=== PATIENT | male | born 1965 | race Caucasian/White ===

== ENCOUNTER 2016-05-13 03:29 | Emergency (ER) | payer OTHER ==
--- NOTE | ~2016-05-13 | CR210 ---
[facility] A Service of [facility] [place] RADIOLOGY TEXT RESULTS PATIENT: KOTA SOLIS LOCATION: SED : 65 UNIT #: [id number] AGE: [address]: Bridger Martinez MD SEX: M ORDER DR: [id number] [place] [address] [id number] E MR#: [id number] Acc #: [id number] NAME: KOTA SOLIS : 1965 SEX: M STUDY DATE/TIME: 05/13/2016 3:47 UNIT: SED ROOM: STUDY DESCRIPTION: CR Ribs Uni 2 View W PA Ch Lt Attending Physician: Bridger Martinez M.D. Ordering Physician: Bridger Martinez M.D. Primary Care Physician: No Primary Care Physician MEDICAL IMAGING REPORT This report is preliminary unless electronic signature is present. EXAM PA chest with AP and oblique views of the left ribs. COMPARISON 2 views of the chest dated May 26, 2015. INDICATION 50-year-old male with acute left-sided rib pain after sneezing yesterday. Pain is worse with deep inspiration. FINDINGS There are arterial calcifications in the bilateral neck. There are degenerative changes at multiple levels of the cervical spine. Prior cholecystectomy. Calcified granulomas in the spleen. No acute fractures or suspicious osseous lesions. On the PA view of the chest, there is poor inspiratory effort with band-like opacities in both lungs, primarily in the mid lungs and lung bases which do not appear to persist on other views of the ribs, favoring multifocal subsegmental atelectasis. IMPRESSION No evidence of a rib fracture. On the PA view of the chest, there is poor inspiratory effort and there are multifocal band-like opacities in both lung bases and within the left midlung, favoring subsegmental atelectasis. Correlation to exclude signs of pneumonia recommended. Dictated by... Graham Mckeon M.D. THIS IS AN ELECTRONICALLY VERIFIED REPORT Graham Mckeon M.D. at 05/16/2016 9:31 PM [facility] A Service of [facility] RADIOLOGY TEXT RESULTS PATIENT: KOTA SOLIS LOCATION: SED : [birth year] UNIT #: [id number] AGE: [address]: Bridger Martinez MD SEX: M ORDER DR: ALINE/janine TD: 05/13/2016 09:55 JOB #: [id number] MEDICAL IMAGING REPORT
[~2016-05-13 03:29] MED LIST: BACTRIM DS TABL1 TA1 PO; BENTYL20 MG; FAMOTIDINE PO; FLAGYL PO; LOC; LORTAB 7.5-5001 TAB PO; MEDROL DOSE PAK PO; NO HOME MEDS; NO MEDICATIONS; PERCOCET10 PO; PHENERGAN25 M1 DOB; PROTONIX PO; REGLAN10 MG PO; TESSALON PERLE100 M1 PO; TRAMADOL HCL50 M1 PO; ZITHROMAX PO
== END 2016-05-13 05:22 | disposition home or self-care (01) ==
LOC: SED 03:29
DX: S29.9XXA Unspecified injury of thorax, initial encounter (principal); J40 Bronchitis, not specified as acute or chronic; I50.9 Heart failure, unspecified; F17.200 Nicotine dependence, unspecified, uncomplicated; X58.XXXA Exposure to other specified factors, initial encounter; Y92.009 Unspecified place in unspecified non-institutional (private) residence as the place of occurrence of the external cause
CPT/HCPCS: 71100; 99283

== ENCOUNTER 2016-11-23 08:03 | Inpatient (IN) | payer OTHER ==
[~2016-11-23] VITALS: Ht 175.3 cm; Wt 84.2 kg
--- NOTE | ~2016-11-23 | CT2 ---
[facility] A Service of [facility] RADIOLOGY TEXT RESULTS PATIENT: KOTA SOLIS LOCATION: [facility] 575-01 : [birth year] UNIT #: [id number] AGE: [address]: Delroy De La Garza MD SEX: M ORDER DR: [id number] [facility] [address] [place], [place] [address] [id number] MR#: [id number] Acc #: [id number] NAME: KOTA SOLIS : 1965 SEX: M STUDY DATE/TIME: 11/23/2016 10:34 UNIT: [facility] ROOM: 5 STUDY DESCRIPTION: CT Abd and Pelv W Cont Attending Physician: Sarbjit Villalba M.D. Ordering Physician: Bakari Hernandez D.O. Primary Care Physician: No Primary Care Physician MEDICAL IMAGING REPORT This report is preliminary unless electronic signature is present EXAM CT of the abdomen and pelvis with contrast. INDICATIONS Abdominal pain for 2 days, as well as diaphoresis, and back pain. Patient has a history of pancreatitis. TECHNIQUE Axial CT images were obtained from the dome of the diaphragm through the symphysis pubis following the administration of intravenous contrast material. This CT exam was performed with one or more of the following radiation dose reduction techniques: automatic exposure control, adjustment of mA and/or kV according to patient size, and iterative reconstruction. FINDINGS Images through the lung bases are clear. The stomach and proximal small bowel are within normal limits, as are the adrenal glands and pancreas. Gallbladder is surgically absent. Calcified granulomata are seen within the spleen. Patient is suspected to have diffuse hepatic steatosis but no focal hepatic lesions are seen. Kidneys appear unremarkable with the exception of a nonobstructing stone within the left kidney, which measures about 6 mm in size. No free fluid or adenopathy is seen within the abdomen. Prostate gland and urinary bladder appear normal. There is no evidence of mechanical bowel obstruction. Patient does have some colonic diverticulosis without any evidence of diverticulitis. This patient's terminal ileum is thick-walled with abnormal enhancement but appears mildly dilated, and there also appears to be some wall edema. No obvious obstructing lesion is seen. This is favored to represent some form of enteritis with some associated localized ileus. Both infectious and inflammatory etiologies could have this appearance. Patient actually had a similar appearance on a prior CT from [facility] A Service of [facility] RADIOLOGY TEXT RESULTS PATIENT: KOTA SOLIS LOCATION: [facility] 575-01 : [birth year] UNIT #: [id number] AGE: [address]: Delroy De La Garza MD SEX: M ORDER DR: December of 2012. Correlation with any prior history of inflammatory bowel disease is suggested given distribution and similarities on prior imaging. Again, there is no pneumatosis, free air or free fluid. There are small bilateral fat containing inguinal hernias, left greater than right. Review of bony windows does not demonstrate any aggressive osseous abnormalities. IMPRESSION 1. Abnormal enhancement of multiple loops of distal ileum, the bowel wall appears thickened with edema, and the loops, themselves, appear mildly dilated. The findings reflect ileus related to enteritis of uncertain etiology, but infectious and inflammatory etiologies would be in the differential. Patient has had a similar appearance in the past, and correlation with any prior history of inflammatory bowel disease, especially Crohn disease is recommended. I do not see any pneumatosis, free air or free fluid. Process again really appears to resemble ileus rather than hayden obstruction at this time. 2. Diffuse hepatic steatosis and hepatomegaly with the liver measuring up to 16.9 cm in craniocaudal dimensions. 3. Gallbladder is surgically absent. Dictated by... Sonja Reynolds M.D. THIS IS AN ELECTRONICALLY VERIFIED REPORT Sonja Reynolds M.D. at 11/24/2016 1:03 PM STEVE/johan TD: 11/24/2016 04:25 JOB #: [id number] MEDICAL IMAGING REPORT Page 1 of 1 COPY
--- NOTE | ~2016-11-23 | CO ---
Unit #: [id number] #: [id number] Patient: KOTA SOLIS [id number] [facility]. [address] [address] [id number] I MR#: [id number] NAME: KOTA SOLIS ROOM: 575 Age: 51 Sex: M Admission Date: 11/23/2016 : 1965 Attending Physician: Delroy De La Garza M.D. Primary Care Physician: Primary Care Physician No Consultation Date: 11/24/2016 CONSULTATION REPORT ATTENDING PHYSICIAN Dr. Sarbjit Villalba. REASON FOR CONSULTATION Evaluate for possible Crohn disease. HISTORY OF PRESENT ILLNESS Mr. Solis is a 51-year-old white gentleman. The patient has had two surgeries in the past. The first one was in 02/2012 for partial small bowel obstruction and the second surgery was for the same reason along with hydrops, cholecystitis with gallstones. At that time, the second surgery he had lysis of adhesions. He presents at this time with nausea, vomiting, and abdominal pain. The patient has been moving his bowels and had in fact a bowel movement short while ago. There is history of periumbilical diffuse abdominal pain. His past medical history is significant for these two episodes with distinct small-bowel obstructions mentioned above. In between, he has been relatively well; however, recently he has been miserable and whenever he feels pain, he stops eating. There is no history of any hospitalization in the interim except for these two times. The patient denies any history of fever, chills, or rigors. The CAT scan today shows thickening of the terminal small bowel and distal small bowel, but no bowel obstruction. PAST SURGICAL HISTORY Included appendectomy, gallbladder surgery, and small bowel lysis of adhesions. PAST MEDICAL HISTORY Includes hypertension, CHF, and bronchial asthma as well as history of pancreatitis in the past. SOCIAL HISTORY Smokes half to one pack of cigarette daily. Does not drink alcohol. FAMILY HISTORY None of colon, pancreatic cancer, or liver disease. ALLERGIES Morphine which gives headache. REVIEW OF SYSTEMS Detailed review of organ systems does not reveal any recent weight loss. No history of fever, chills, or rigors. No history of headache, seizures, Unit #: [id number] #: [id number] Patient: KOTA SOLIS chest pain, or syncope. No history of cough, expectoration, or hemoptysis. No history of dysuria, hematuria, or pyuria. No history of focal seizures or extremity weakness. Rest of the review of organ systems is unremarkable. PHYSICAL EXAMINATION GENERAL: He is alert and oriented and comfortable. VITAL SIGNS: Stable with a temperature of 98, pulse 72 per minute and regular, respiratory rate is 18, blood pressure 128/82. HEENT: He has no pallor, icterus, lymphadenopathy, or peripheral edema. CARDIOVASCULAR: Reveals normal heart sounds. No murmurs on auscultation. LUNGS: Reveal normal breath sounds. Good air entry. ABDOMEN: Soft, obese, rotund with a ventral hernia. The patient does have diffuse abdominal tenderness mostly in the periumbilical area. Liver and spleen are not palpable. Bowel sounds normal. Hernia sites were also normal. DIAGNOSTIC STUDIES LABORATORY RESULTS: Shows a normal CBC; however, his white count was 20,000 yesterday and 9000 today on IV antibiotics. Albumin is preserved at 4.8, potassium is 3.3. LFTs normal. IMAGING STUDIES: There is terminal ileal thickening on a CAT scan, but no evidence of obstruction. CLINICAL IMPRESSION Although, the possibility of Crohn disease is likely in view of the terminal ileal thickening. The surprising finding is the patient has had long periods of remission in between almost up to 2 years between the two episodes. An endoscopic visualization and histologic diagnosis of terminal ileum are needed and terminal ileoscopy will be done tomorrow with a colonoscopy and terminal ileoscopy. A push enteroscopy will be done at the same time. The pros and cons of procedure, potential risks, and complications were discussed with the patient and he was reassured. Thank you for asking me to see this pleasant gentleman. I appreciate the consult. Dictated by... Espinoza Mattson/basil TD: 11/24/2016 11:28 JOB #: [id number] CC: Alex Chan M.D. Unit #: [id number] #: [id number] Patient: KOTA SOLIS CONSULTATION REPORT Page 1 of 1 X Kahlil Munroe MD X CONSULTATION REPORT
--- NOTE | ~2016-11-23 | HP ---
Unit #: [id number] #: [id number] Patient: KOTA SOLIS [id number] [address] [address] [id number] I MR#: [id number] NAME: KOTA SOLIS ROOM: 575 Age: 51 Sex: M Admission Date: 11/23/2016 : 1965 Attending Physician: Delroy De La Garza M.D. Primary Care Physician: No Primary Care Physician HISTORY AND PHYSICAL CHIEF COMPLAINT Nausea and vomiting and abdominal pain. HISTORY OF PRESENT ILLNESS The patient is a 51-year-old male with a history of multiple surgeries for the small bowel obstruction including ex lap and open appendectomy and brought to the emergency room complaining of nausea and vomiting. The patient stated the nausea and vomiting started since last Friday and has been gradually worsening to the point that he cannot take it anymore. The patient also complains of the generalized abdominal pain but, however, mainly in the right lower quadrant. The patient had a CT of abdomen and pelvis that showed ileitis with ileus and no obstruction. The patient is being admitted for the above reasons. The patient complains of the chills, denies any fever. The patient continues to smoke cigarettes, half a pack per day. The patient denies any chest pain, denies any shortness of breath. PAST MEDICAL HISTORY History of pancreatitis, asthma, back pain, CHF, hypertension. PAST SURGICAL HISTORY Appendectomy, small bowel obstruction, repair and gallbladder surgery. SOCIAL HISTORY Smokes half a pack per day, denies any alcohol or any illicit drug abuse. FAMILY HISTORY Reviewed and none. ALLERGIES Morphine. HOME MEDICATIONS None. REVIEW OF SYMPTOMS Positive for nausea and vomiting and abdominal pain. Denies any shortness of breath. Denies any chest pain and all other systems have been reviewed and none. PHYSICAL EXAMINATION GENERAL APPEARANCE: The patient is lying on a bed not in acute distress. VITAL SIGNS: Temperature 97. Pulse 113. Respiratory rate 20. Blood pressure 149/109. Sating 96% at room air. Unit #: [id number] #: [id number] Patient: KOTA SOLIS HEENT: Head, atraumatic, normocephalic. ENT: Pupils equal, round, reacting to light and accommodation. Extraocular movements are intact. NECK: Supple. LUNGS: Decreased air entry at the bases. HEART: Regular rate and rhythm. ABDOMEN: Soft. Positive bowel sounds and tenderness mainly in the right lower quadrant and the healed surgical scars. EXTREMITIES: No cyanosis. No clubbing. NEUROLOGIC: Alert, awake, oriented. No gross focal motor deficit. DIAGNOSTIC STUDIES LABORATORY: Troponin less than 0.05. Sodium 132, potassium 3.3, chloride 97, bicarb 20, glucose 156, BUN 22, creatinine 1.1, AST 29, ALT 36, alkaline phosphatase 84, albumin 4.8. WBC 21, hemoglobin 18.1, hematocrit 41.1, platelets 338 and neutrophils 79%, bands one percent. UA shows 1+ leukocyte esterase, protein 2+, 5 to 10 urine RBCs. Troponin less than 0.05. Lactic acid is one. IMAGING: CT of the abdomen and pelvis shows the patient has ileitis with ileus and no obstruction. ASSESSMENT 1. Enteritis. 2. Ileus. 3. Nausea and vomiting. 4. Sepsis. PLAN To admit the patient to the inpatient with telemetry. Continue with the IV fluids, bowel rest and IV antibiotics with Zosyn and the Flagyl. Patient already seen by Surgery and will have the GI consult. Repeat the labs again in the morning and further recommendations will follow. Dictated by Espinoza Singh TD: 11/24/2016 11:44 JOB #: [id number] HISTORY AND PHYSICAL Page 1 of 1 X ALVIN BORGES MD X HISTORY AND PHYSICAL
--- NOTE | ~2016-11-23 | DS ---
Unit #: [id number] #: [id number] Patient: KOTA SOLIS [id number] [address] [address] [id number] I MR#: [id number] NAME: KOTA SOLIS ROOM: 230 Age: 51 Sex: M Admission Date: 11/23/2016 : 1965 Discharge Date: 11/27/2016 Attending Physician: Lali Howe M.D. Primary Care Physician: Primary Care Physician No DISCHARGE SUMMARY PRIMARY CARE PROVIDER None. PRINCIPAL DIAGNOSES 1. Acute enteritis, question viral in origin. 2. Constipation. 3. Ventral incisional hernia. 4. History of hypertension. 5. Chronic obstructive pulmonary disease. 6. Tobaccoism. 7. Overweight. 8. History of pancreatitis. 9. Chronic back pain. 10. History of congestive heart failure without any other known details. 11. Hepatic steatosis. CONSULTANTS 1. Dr. Munroe - gastroenterology 2. Dr. Cagle - generally surgery PROCEDURES 1. EGD with mild erythema involving the duodenal bulb. 2. Colonoscopy on November 25, 2016 with two small sessile polyps in the mid and distal sigmoid colon which were removed, mild diverticulosis, cecum and terminal ileum are normal, ileocecal valve is also normal, and 12 to 15 cm of terminal ileum are intubated and appeared normal. I will note biopsies did not reveal any findings consistent with Crohn's or ulcerative colitis. 3. CT scan of the abdomen and pelvis with contrast on November 23, 2016, with abnormal enhancement in multiple loops of distal ileum, bowel was thickened. It reflects ileus related to enteritis. Diffuse hepatic steatosis and hepatomegaly noted. CLINICAL HISTORY AND HOSPITAL COURSE Mr. Solis is a nice 51-year-old male, who presents to the emergency department with complaints of nausea, vomiting, and abdominal pain. Please refer to history and physical for further details. In the emergency department, the patient was found to have a significant leukocytosis with white blood cell count of 21,000. CT scan of the abdomen and pelvis revealed ileus associated with an enteritis. The patient was subsequently admitted. The patient was placed on empiric antibiotic therapy. Leukocytosis Unit #: [id number] #: [id number] Patient: KOTA SOLIS resolved rapidly. There were concerns given thickening of terminal ileum that perhaps patient had some underlying inflammatory bowel disease. Gastroenterology was consulted. The patient underwent EGD and colonoscopy with findings as noted. And noted biopsy does not really reveal any findings consistent with Crohn's and/or ulcerative colitis. The patient is currently awaiting small bowel follow-through for complete study but I anticipate this will be negative. I suspect he had perhaps a bacterial vs viral enteritis with associated ileus leading to his symptoms. Today, he had a large bowel movement and states that he feels quite a bit better. We will complete a short course of Flagyl. Surgery was consulted given his known ventral hernia but plans are for surgical repair as an outpatient. The patient's other chronic conditions remain stable. He has had no evidence of hypertension during hospitalization and the respiratory status remained stable. We will discharge home later today if small bowel follow-through is normal. DISCHARGE CONDITION Stable. DISCHARGE STATUS Discharged to home. DISCHARGE MEDICATIONS 1. Oxycodone 5 mg p.o. q.6h p.r.n. for pain, #10 2. Flagyl 500 mg p.o. t.i.d. for another five days DISCHARGE INSTRUCTIONS The patient was instructed to follow a heart healthy diet, he can increase activity as tolerated, and shall refrain from any further tobacco use. FOLLOWUP The patient will follow up with primary care physician in two weeks, will follow up Dr. Cagle within one month and arrange for outpatient repair of ventral hernia. Dictated by... Lali Howe M.D. WILLY/isael TD: 11/29/2016 09:39 JOB #: [id number] Unit #: [id number] #: [id number] Patient: KOTA SOLIS DISCHARGE SUMMARY Page 1 of 1 X Lali Howe MD X DISCHARGE SUMMARY
--- NOTE | ~2016-11-23 | CR236 ---
[facility] A Service [facility] RADIOLOGY TEXT RESULTS PATIENT: KOTA SOLIS LOCATION: [facility] : [birth year] UNIT #: [id number] AGE: [address]: Lali Howe MD SEX: M ORDER DR: [id number] [place], [place] [address] [id number] I MR#: [id number] Acc #: [id number] NAME: KOTA SOLIS : 1965 SEX: M STUDY DATE/TIME: 11/27/2016 9:31 UNIT: A ROOM: 230 STUDY DESCRIPTION: CR Small Bowel Sbft W Films Attending Physician: Lali Howe M.D. Ordering Physician: Lali Howe M.D. Primary Care Physician: No Primary Care Physician MEDICAL IMAGING REPORT This report is preliminary unless electronic signature is present EXAM Small bowel follow-through. CLINICAL HISTORY Recurrent small bowel obstruction for about [address] suggesting wall thickening in the distal ileum. FINDINGS Transit time was normal. The distal small bowel appears normal. Question some fold thickening in the second and third duodenum. Minimal localized tenderness on palpation in this region. The terminal ileum and distal bowel loops are normal. IMPRESSION 1. Normal appearing distal small bowel. Question some fold thickening in the second and third duodenum and mild tenderness in the region on palpation. 2. Three spot images and 3 overhead images were obtained along with 1.1 minutes of fluoroscopy utilized. Dictated by... Garry Muniz M.D. THIS IS AN ELECTRONICALLY VERIFIED REPORT Garry Muniz M.D. at 11/28/2016 2:07 PM TEV/pc TD: 11/28/2016 09:34 JOB #: [id number] [facility] A Service [facility] RADIOLOGY TEXT RESULTS PATIENT: KOTA SOLIS LOCATION: [facility] : [birth year] UNIT #: [id number] AGE: [address]: Lali Howe MD SEX: M ORDER DR: MEDICAL IMAGING REPORT Page 1 of 1 COPY
--- NOTE | ~2016-11-23 | CO ---
Unit #: [id number] #: [id number] Patient: KOTA SOLIS [id number] [facility]. [place], [place] [address] [id number] E MR#: [id number] NAME: KOTA SOLIS ROOM: Age: 51 Sex: M Admission Date: 11/23/2016 : 1965 Attending Physician: Bakari Hernandez D.O. Primary Care Physician: No Primary Care Physician Consultation Date: 11/23/2016 CONSULTATION REPORT HISTORY OF PRESENT ILLNESS Mr. Solis is a 51-year-old gentleman who presented to the emergency room complaining of nausea, vomiting and abdominal pain since last Friday. He states that he started with some diffuse nonspecific periumbilical pain on Friday and, by morning, he was having multiple episodes of nonbloody diarrhea and recurrent episodes of nonbloody emesis. He said he felt warm but did not have fever but he has been having chills. Because of the persistence and progression of his discomfort and the nausea and vomiting and diarrhea. He came to the emergency room. He does have a history of small bowel obstruction in the past and has had multiple hospitalizations for similar complaints of nausea and vomiting, the etiology of which has not always been clear. Today, a CT scan was obtained and it did not show any evidence of mechanical obstruction but it does show segmental loops in the terminal ileum with areas of small bowel thickening and inflammation, possibly consistent with Crohn's disease. There is no pneumatosis, free fluid or free air. PAST MEDICAL HISTORY Previous open appendectomy, exploratory laparotomy for small bowel obstruction, multiple admissions for nausea and vomiting. He has had endoscopic evaluation by EGD and colonoscopy, asthmatic bronchitis. He reports a myocardial infarction in 1996, history of hypertension and pancreatitis and cholecystectomy. SOCIAL HISTORY He is a smoker, social alcohol drinker, denies recreational drugs. FAMILY HISTORY He is unaware of any chronic or inheritable diseases. In particular, he does not know if there is any family history of inflammatory bowel disease. ALLERGIES He states his only allergy is to morphine, which causes a headache. MEDICATIONS He is not on any current medications, however. REVIEW OF SYSTEMS No hematemesis, hematochezia or melena. He is uncertain whether he has had fever but he does complain of chills. CURRENT PHYSICAL EXAMINATION VITAL SIGNS: Temperature is 97.0. Pulse 95. Respiration 16. Blood pressure 142/106. He is up walking around in the emergency room. Unit #: [id number] #: [id number] Patient: KOTA SOLIS HEENT: Unremarkable. CARDIAC: Regular rhythm. LUNGS: Clear. ABDOMEN: He has a midline incision with a small area of incisional hernia at the most superior portion of the incision. His abdomen is slightly distended. He guards throughout but his maximum area of tenderness is in the right lower quadrant towards the mid abdomen. There are no peritoneal signs. EXTREMITIES: No edema. NEUROLOGIC: Grossly intact. No skin rashes or lesions. DIAGNOSTIC STUDIES LABORATORY: Comprehensive metabolic panel shows a potassium of 3.3, serum CO2 of 20. Liver chemistries are normal. Lipase is 32. Lactic acid is 1.0. White count is 21,000 with 77% neutrophils, 11% lymphoctyes. Hemoglobin is 18.1, hematocrit 50.1, platelets 338,000. Urinalysis is negative for infection. IMAGING: CT scan as discussed. ASSESSMENT/PLAN Patient presents with nausea, vomiting and diarrhea and has CT evidence of enteritis, possibly consistent with Crohn's disease. Given his past history of multiple episodes of abdominal pain, nausea and vomiting, this had been undiagnosed. This is a real possibility. The patient will be admitted for hydration, antibiotics and I will start him on some anti-inflammatories. I will ask Dr. Munroe, who has seen him in the past, to see him in consultation for possible Crohn's disease. Dictated by... Espinoza Tian/alondra TD: 11/23/2016 15:39 JOB #: [id number] CONSULTATION REPORT Page 1 of 1 X Alex Chan MD CONSULTATION REPORT
--- NOTE | ~2016-11-23 | OR ---
Unit #: [id number] #: [id number] Patient: KOTA SOLIS [id number] [facility]. [place], [place] [address] [id number] MR#: [id number] NAME: KOTA SOLIS ROOM: 575 Date of Procedure: 11/25/2016 Admission Date: 11/23/2016 Surgeon: Kahlil Munroe M.D. : 1965 Attending Physician: Lali Howe M.D. Primary Care Physician: Primary Care Physician No OPERATIVE REPORT PROCEDURES PERFORMED Upper gastrointestinal endoscopy, push enteroscopy, and biopsies as well as colonoscopy with biopsies and colonoscopy with polypectomy. POSTOPERATIVE DIAGNOSES For push enteroscopy: Mild erythema involving the duodenal bulb, otherwise normal examination up to proximal jejunum. The mucosa throughout was normal. A biopsy was obtained from the antrum for CLOtest. For colonoscopy: 1. The patient had two small sessile polyps in the mid and distal sigmoid colon. These were about 5 mm each and were removed using snare polypectomy. 2. Mild diverticulosis involving the right colon. 3. Rest of the examination up to cecum and terminal ileum was normal. It is noteworthy the ileocecal valve was normal and at least 12 to 15 cm of terminal ileum were intubated and appeared completely normal, there being no mucosal abnormalities whatsoever. RECOMMENDATIONS The findings of the CAT scan are most likely an artifact due to lack of distention of the terminal ileum; however, for the sake of completion and conclusion, it would be reasonable to do a small bowel follow-through tomorrow. The patient will be able to have regular diet thereafter. There is no suggestion that he has terminal ileal Crohn's based upon the above examination which was of high quality with excellent prep. SEDATION USED MAC. DESCRIPTION OF PROCEDURE Following detailed explanation of potential risks and complications of an upper endoscopy and a push enteroscopy as well as colonoscopy namely perforation, bleeding, and complication related to sedation, the patient was brought to GI lab and laid in the left lateral decubitus position. Lubricated tip of the Olympus video upper endoscope was passed through the bite block into the proximal esophagus under direct vision. The entire esophageal mucosa was examined and appeared normal. Z-line was nicely demarcated, there being no esophagitis or hiatus hernia. The scope was then advanced into the gastric cavity and the latter was insufflated. Unit #: [id number] #: [id number] Patient: KOTA SOLIS Mucosa of the fundus, body, and antrum was examined and appeared unremarkable. Pylorus was intubated with visualization of the duodenal bulb. The latter was noted to have mild focal patchy erythema. Second and third part of duodenum were normal. Upon withdrawal and retroflexion; incisura, cardia, and greater curve was examined and biopsy was obtained from the antrum for CLOtest. The scope was then withdrawn in the distal esophagus. Entire esophageal mucosa was examined all the way up to pharynx. No additional findings were noted. A pediatric colonoscope was used for push enteroscopy. At this time, the scope was advanced past the duodenum into the proximal jejunum. Couple of loops of proximal jejunum were intubated and appeared normal. The scope was then withdrawn. The examination table was then turned by 180 degrees and the patient positioned for a colonoscopy. A digital rectal examination was performed, which was normal. Lubricated tip of the Olympus video colonoscope was inserted through the anus and advanced under direct vision. The scope was advanced past rectosigmoid into descending colon. No diverticula were seen in this area. The scope tip was then navigated all the way up to cecum with visualization of the ileocecal valve and the appendiceal orifice. Multiple diverticula were seen in the right colon. The ileocecal valve appeared normal. Several inches of terminal ileum were then intubated, in fact at least 12 to 15 cm of terminal ileum was intubated and appeared completely normal. Biopsies were obtained from neoterminal ileum and terminal ileum itself and sent for histology. Successive segments of the colonic mucosa were examined upon withdrawal. Other than the right-sided diverticulosis, the patient was noted to have two polyps in the sigmoid colon. These were small about 5 mm each. Both were removed using snare polypectomy. They were retrieved and sent for histology. No additional polyps were noted. The patient did not have any hemorrhoids at anal verge. The scope was then withdrawn and the patient returned to the recovery area. He tolerated the procedure without any postprocedure complications. Dictated by... Espinoza Mattson TD: 11/25/2016 15:36 JOB #: [id number] CC: Espinoza Tian, M.D. OPERATIVE REPORT Page 1 of 1 X Kahlil Munroe MD PROCEDURE OPERATIVE NOTE
[2016-11-23 09:38] LABS: BASOPHIL% 0.2 % (0-2.5); DIFF IND YES; EOSINOPHIL% 0.2 % (0.0-7.0); HEMATOCRIT 51.1 % (38.0-50.0); HEMOGLOBIN 18.1 gm/dL (13.0-16.0); LYMPHOCYTE# 2.5 X10e3 (1.0-3.5); LYMPHOCYTE% 11.7 % (17.0-45.0); MEAN CELL VOLUME 91.5 FL (83-96); MEAN CORPUSCULAR HEMOGLOBIN 32.5 PG (28-34); MEAN CORPUSCULAR HGB CONC 35.5 g/dL (30-36); MEAN PLATELET VOLUME 8.8 FL (6.5-11.5); MONOCYTE# 2.2 X10e3 (0-1.0); MONOCYTE% 10.6 % (3.0-12.0); NEUTROPHIL# 16.3 X10e3 (1.5-7.1); NEUTROPHIL% 77.3 % (40-75); PLATELET COUNT 338 X10e3 (140-420); RED BLOOD COUNT 5.58 X10e (3.90-5.60)
[2016-11-23 09:44] LABS: POC - CKMB 1.7 ng/mL (0.0-7.9); POC - TROPONIN <0.05 ng/mL (<=0.05)
[2016-11-23 09:46] LABS: ALBUMIN SERUM 4.8 g/dL (3.5-5.0); BILIRUBIN, DIRECT 0.1 mg/dL (0.0-0.2); BILIRUBIN,TOTAL 1.1 mg/dL (0.2-2.0); CALCIUM SERUM 9.3 mg/dL (8.4-10.2); CREATININE SERUM 1.1 mg/dL (0.6-1.4); GLOM FILT RATE Estimated 77.3 mL/min (>60); POTASSIUM 3.3 mmol/L (3.5-5.1); PROTEIN TOTAL SERUM 8.6 g/dL (6.0-8.3)
[2016-11-23 09:55] LABS: URINE SOURCE CLEAN CATCH
[2016-11-23 10:02] LABS: URINE APPEARANCE CLOUDY; URINE BLOOD NEG (NEG); URINE COLOR DK YELLOW; URINE GLUCOSE NEG (NEG); URINE KETONE 2+ (NEG); URINE LEUKOCYTE ESTERASE 1+ (NEG); URINE NITRATE NEG (NEG); URINE PH 5.5 (5-8); URINE PROTEIN 2+ (NEG); URINE SPECIFIC GRAVITY 1.032 (1.003-1.035)
[2016-11-23 10:05] LABS: URINE BACTERIA AUWI NEG (NEGATIVE); URINE SQUAMOUS EPITHELIAL CELL OCC /[HPF]
[2016-11-23 10:20] LABS: PLATELET ESTIMATE NORMAL (NORMAL)
[2016-11-23 10:25] LABS: CULTURE INDICATED? NO
[2016-11-23 10:26] LABS: URINE BILIRUBIN NEG (NEG)
[2016-11-23 10:27] LABS: URINE MUCUS PRESENT
[2016-11-23 10:28] LABS: URINE CRYSTALS CALCIUM OXALATE /[HPF]; URINE YEAST PRESENT
[2016-11-23 11:39] LABS: POC - CKMB 1.1 ng/mL (0.0-7.9); POC - TROPONIN <0.05 ng/mL (<=0.05)
[2016-11-24 08:35] LABS: HEMATOCRIT 45.7 % (38.0-50.0); MEAN CELL VOLUME 91.8 FL (83-96); MEAN CORPUSCULAR HEMOGLOBIN 32.2 PG (28-34); MEAN PLATELET VOLUME 8.4 FL (6.5-11.5); RED BLOOD COUNT 4.98 X10e (3.90-5.60); RED CELL DISTRIBUTION WIDTH 12.8 % (11.0-15.5)
[2016-11-24 08:37] LABS: WHITE BLOOD COUNT 9.1 X10e3 (4.0-10.5)
[2016-11-24 09:13] LABS: BUN/CREATININE RATIO 17.77; CALCIUM SERUM 8.6 mg/dL (8.4-10.2); CREATININE SERUM 0.9 mg/dL (0.6-1.4); GLOM FILT RATE Estimated 98.5 mL/min (>60); MAGNESIUM 1.8 mg/dL (1.6-3.0); PHOSPHOROUS 2.1 mg/dL (2.5-4.6); POTASSIUM 3.7 mmol/L (3.5-5.1)
[2016-11-25 05:30] LABS: HEMATOCRIT 39.3 % (38.0-50.0); MEAN CELL VOLUME 92.9 FL (83-96); MEAN CORPUSCULAR HEMOGLOBIN 31.9 PG (28-34); MEAN CORPUSCULAR HGB CONC 34.3 g/dL (30-36); MEAN PLATELET VOLUME 8.6 FL (6.5-11.5); RED BLOOD COUNT 4.23 X10e (3.90-5.60); WHITE BLOOD COUNT 8.2 X10e3 (4.0-10.5)
[2016-11-25 05:37] LABS: HEMOGLOBIN 13.5 gm/dL (13.0-16.0)
[2016-11-25 06:14] LABS: BUN/CREATININE RATIO 13.75; CALCIUM SERUM 7.9 mg/dL (8.4-10.2); CREATININE SERUM 0.8 mg/dL (0.6-1.4); GLOM FILT RATE Estimated 103.5 mL/min (>60); POTASSIUM 3.7 mmol/L (3.5-5.1)
[2016-11-27] MEDS ORDERED: OXYCODONE HCL5 MG PO (17:39)
[2016-11-27] MEDS ORDERED: FLAGYL PO (17:40)
== END 2016-11-27 18:45 | disposition home or self-care (01) | DRG 392 ==
LOC: CED 08:03 → CEDOF 12:30 → CED 12:30 → C5C 12:30 → CED 16:15 → CEDOF 16:15 → C5C 17:47 → CEDOF 17:47 → C5C 11-24 06:12 → C2A 11-26 12:36
PROVIDERS: Emergency Medicine; Internal Medicine; Internal Medicine Gastroenterology; Specialist
PROC: 05HC33Z Insertion of Infusion Device into Left Basilic Vein, Percutaneous Approach (ICD-10-PCS; 2016-11-24)
PROC: 0DBN8ZX Excision of Sigmoid Colon, Via Natural or Artificial Opening Endoscopic, Diagnostic (ICD-10-PCS; principal; 2016-11-25 13:45)
PROC: 0DBN8ZX Excision of Sigmoid Colon, Via Natural or Artificial Opening Endoscopic, Diagnostic (ICD-10-PCS; 2016-11-25 13:45)
PROC: 0DB78ZX Excision of Stomach, Pylorus, Via Natural or Artificial Opening Endoscopic, Diagnostic (ICD-10-PCS; 2016-11-25 13:45)
DX: A08.4 Viral intestinal infection, unspecified (principal); I11.0 Hypertensive heart disease with heart failure; I50.9 Heart failure, unspecified; K76.0 Fatty (change of) liver, not elsewhere classified; K59.00 Constipation, unspecified; K43.2 Incisional hernia without obstruction or gangrene; J44.9 Chronic obstructive pulmonary disease, unspecified; F17.210 Nicotine dependence, cigarettes, uncomplicated; G89.29 Other chronic pain; M54.9 Dorsalgia, unspecified; E66.3 Overweight; K63.5 Polyp of colon; Z88.5 Allergy status to narcotic agent; Z90.49 Acquired absence of other specified parts of digestive tract
CPT/HCPCS: 36415; 74177; 74250; 80048; 80076; 81003; 82553; 82947; 83605; 83690; 83735; 84100; 84484; 85025; 85027; 87040; 87077; 88305; 96361; 96374; 96375; 99285; J1170; J1650; J1720; J2250; J2405; J2543; J2550; Q9967